=== PATIENT | female | born 1970 | race Caucasian/White ===

== ENCOUNTER → 2018-05-28 | Outpatient (CLI) | payer BC ==
[2018-05-28 10:14] VITALS: BP 143/89; PULSE 71; RESP 18; TEMP 97.4; BMI 24.1
--- NOTE | 2018-05-28 10:15 | P.HPOB ---
History of Present Illness H&P Date: 05/28/18 Chief Complaint: The patient is here for her routine gynecologic exam and mammogram. This is a 47-year-old with an LMP of 05/20/2018. She is status post endometrial ablation. Her is status post vasectomy. She states her menses irregular every month and are normal. They are typically lasting 5 to 6 days. Her last 2 Pap smears on 03/20/2017 and 03/14/2016 showed ascus with negative high-risk HPV testing. Review of Systems The patient has intentionally lost 7 pounds over the last year. She denies respiratory, cardiac, or G.I. problems. 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 She had an endometrial ablation for hypermenorrhea. 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 - Past Family History Father Family Medical History: Hypertension Medications and Allergies Home Medications Medication Instructions Recorded Confirmed Type No Known Home Medications 05/28/18 05/28/18 History Allergies Allergy/AdvReac Type Severity Reaction Status Date / Time No Known Allergies Allergy Unverified 05/28/18 09:17 Exam Vital Signs Temp Pulse Resp BP Pulse Ox 05/28/18 09:18 97.4 F L 71 18 143/89 98 Intake and Output 05/27/18 05/28/18 05/28/18 22:59 06:59 14:59 Other: Weight 69.853 kg Height 5'7", weight 154 pounds, BMI 24.1. This is a well-developed well-nourished weight female who is alert and oriented times 3 in no acute distress. HEENT: Within normal limits. NECK: Supple without mass or thyromegaly. CHEST AND LUNGS: Clear to auscultation. HEART: Regular rate and rhythm. BREASTS: Are without mass or discharge. AXILLARY EXAM: Negative for adenopathy. BACK: Negative for CVA tenderness. ABDOMEN: Soft, nontender, without palpable masses. PELVIC EXAM: Normal external genitalia. Cervix and vagina appear normal. The cervix is multiparous. There is no unusual discharge. There is no evidence of prolapse. The uterus is midposition, nongravid size and nontender. There are no palpable adnexal masses or tenderness. RECTAL EXAM: negative for mass or tenderness and is negative for occult blood. EXTREMITIES: Nontender. IMPRESSION: 1. 47-year-old female with normal gynecologic exam. 2. Her has status post vasectomy. 3. Previous ascus Pap smear with negative high-risk HPV testing approximately 14 months ago. PLAN: 1. Pap smear was deferred. We will plan repeating the Pap smear with high- risk HPV testing (co-test) in one year. We have discussed the recommendations for testing following ascus Pap smear with negative high-risk HPV testing. 2. Self breast awareness was discussed with the patient. 3. Screening mammogram will be done today. 4. Osteoporosis prevention was discussed. I have stressed the importance of adequate calcium, vitamin D and regular exercise. Recommended amounts of calcium and vitamin D were also discussed. 5. She will return in one year.
--- NOTE | 2018-05-29 09:58 | MM ---
Reason for exam: screening (asymptomatic). Last mammogram was performed 1 year and 2 months ago. History: Patient history of other cancer. Benign right mammotome panel of the right breast, November 04, 2012. Physical Findings: A clinical breast exam by your physician is recommended on an annual basis and results should be correlated with mammographic findings. MG Screening Mammo w CAD Bilateral CC and MLO view(s) were taken. Prior study comparison: March 20, 2017, bilateral MG screening mammo w CAD. March 14, 2016, bilateral MG screening mammo w CAD. The breast tissue is heterogeneously dense. This may lower the sensitivity of mammography. There is chronic nodularity bilaterally. There is no dominant lesion. No significant changes when compared with prior studies. ASSESSMENT: Benign, BI-RAD 2 RECOMMENDATION: Routine screening mammogram of both breasts in 1 year.
== END | disposition home or self-care (01) ==
LOC: WWCWWP 09:05
PROVIDERS: ATTEND Obstetrics & Gynecology
DX: Z12.31 Encounter for screening mammogram for malignant neoplasm of breast (principal)
CPT/HCPCS: 77067

== ENCOUNTER → 2019-06-17 | Outpatient (CLI) | payer BC ==
[2019-06-17 08:03] VITALS: BP 136/92; PULSE 70; RESP 18; TEMP 97.7
--- NOTE | 2019-06-17 08:56 | P.HPOB ---
History of Present Illness H&P Date: 06/17/19 Chief Complaint: The patient is here for her routine gynecologic exam and ma mmogram. This is a 48-year-old 89 with an LMP of 05/27/2019. The patient's is status post vasectomy. She is status post endometrial ablation. Menses are regular every month lasting about 6 days. She states her periods are somewhat bothersome to her. She does not like that they are lasting 6 days even after her ablation. Her last Pap smear showed ASCUS with negative high-risk HPV testing in March 2017. Review of Systems The patient has gained 4 pounds over the last year. She denies respiratory, cardiac, or G.I. problems. : She occasionally has to urinate more frequently. 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 She had an endometrial ablation for hypermenorrhea. History of Any Multi-Drug Resistant Organisms: None Reported Past Surgical History: Section, Uterine Ablation Additional Past Surgical History / Comment(s): Endometrial Ablation 2005. 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 - Past Family History Father Family Medical History: Hypertension Medications and Allergies Home Medications Medication Instructions Recorded Confirmed Type No Known Home Medications 05/28/18 06/17/19 History Allergies Allergy/AdvReac Type Severity Reaction Status Date / Time No Known Allergies Allergy Unverified 06/17/19 07:56 Exam Vital Signs Temp Pulse Resp BP Pulse Ox 06/17/19 07:56 97.7 F 70 18 136/92 100 Intake and Output 06/16/19 06/17/19 06/17/19 22:59 06:59 14:59 Other: Weight 71.668 kg Height 5 feet 7 inches, weight 158 pounds, BMI 24.7. This is a well-developed well-nourished white female who is alert and oriented times 3 in no acute distress. HEENT: Within normal limits. NECK: Supple without mass or thyromegaly. CHEST AND LUNGS: Clear to auscultation. HEART: Regular rate and rhythm. BREASTS: Are without mass or discharge. AXILLARY EXAM: Negative for adenopathy. BACK: Negative for CVA tenderness. ABDOMEN: Soft, nontender, without palpable masses. PELVIC EXAM: Normal external genitalia. Cervix and vagina appear normal. The cervix is multiparous and a grade 2 uterine prolapse is noted. There is no significant cystocele and there is a minimal rectocele. There is no unusual discharge. The uterus is midposition, multiparous nongravid size and nontender. There are no palpable adnexal masses or tenderness. RECTAL EXAM: negative for mass or tenderness and is negative for occult blood. EXTREMITIES: Nontender. IMPRESSION: 1. 48-year-old female whose is status post vasectomy with grade 2 uterine prolapse. 2. Mild hypermenorrhea despite previous endometrial ablation. 3. The patient feels that she does not hold is much urine and thus has to urinate more frequently. 4. Previous ASCUS Pap smear with negative high-risk HPV testing. 5. Elevated blood pressure. PLAN: 1. Pap smear with high-risk HPV testing was performed. 2. Self breast awareness was discussed with the patient. 3. Screening mammogram will be done today. 4. We had a long discussion regarding her mild uterine prolapse, mild hypermenorrhea and smaller bladder capacity. She will try negative Valsalva exercises and instructions were given to the patient on this. She'll also try to void more completely by giving herself more time when she does urinate and by relaxing. 5. Information on pelvic support problems and hysterectomy were given to the patient. She states she is contemplating something more definitive for her symptoms such as hysterectomy. 6. I recommended that the patient check her own blood pressures on a regular basis and follow up with Dr. Beckford for blood pressure elevations. She states she is able to check her blood pressures at work. 7. She was advised to return in one year for her annual well woman exam.
--- NOTE | 2019-06-18 10:59 | MM ---
Reason for exam: screening (asymptomatic). Last mammogram was performed 1 year and 1 month ago. History: Patient history of other cancer. Benign right mammotome panel of the right breast, November 04, 2012. Took hormonal contraceptives for 10 years. Physical Findings: A clinical breast exam by your physician is recommended on an annual basis and results should be correlated with mammographic findings. MG Screening Mammo w CAD Bilateral CC and MLO view(s) were taken. Prior study comparison: May 28, 2018, bilateral MG screening mammo w CAD. March 20, 2017, bilateral MG screening mammo w CAD. The breast tissue is heterogeneously dense. This may lower the sensitivity of mammography. There are increased right lower inner quadrant calcifications at anterior depth. No suspicious abnormality on the left breast. Right biopsy marker noted. ASSESSMENT: Incomplete: need additional imaging evaluation, BI-RAD 0 RECOMMENDATION: Special view mammogram of the right breast. [facility] will attempt to contact patient to return for supplemental views.
== END ==
LOC: WWCWWP 07:46
PROVIDERS: ATTEND Obstetrics & Gynecology
DX: Z12.31 Encounter for screening mammogram for malignant neoplasm of breast (principal)
CPT/HCPCS: 77067

== ENCOUNTER → 2019-06-26 | Outpatient (CLI) | payer BC ==
--- NOTE | 2019-06-26 13:32 | MM ---
Reason for exam: additional evaluation requested from abnormal screening. Last mammogram was performed less than 1 month ago. History: Patient history of other cancer. Benign right mammotome panel of the right breast, November 04, 2012. Took hormonal contraceptives for 10 years. Physical Findings: Nurse did not find any significant physical abnormalities on exam. MG Work Up Mamm w CAD RT CC with magnification, LM with magnification, and LM view(s) were taken of the right breast. Prior study comparison: June 17, 2019, bilateral MG screening mammo w CAD. May 28, 2018, bilateral MG screening mammo w CAD. The breast tissue is heterogeneously dense. This may lower the sensitivity of mammography. There is a right lower inner quadrant 1.8cm heterogenous linear calcifications. Biopsy recommended due to the linear morphology. Other scattered benign appearing right calcifications. Right biopsy marker noted. These results were verbally communicated with the patient and result sheet given to the patient on 06/26/19. ASSESSMENT: Suspicious, BI-RAD 4 RECOMMENDATION: Stereotactic core biopsy of the right breast. Called Dr. Jones's office with mammographic findings and has scheduled an appointment for the patient for 08/07/19 at 8:[address] Stephens. Biopsy scheduled for 07/25/19 at 10:20. PRELIMINARY REPORT CALLED AND FAXED TO DR. STEPHENS ON 06/26/19.
== END | disposition home or self-care (01) ==
LOC: RADMAMWWP 10:15
PROVIDERS: ATTEND Obstetrics & Gynecology
DX: R92.8 Other abnormal and inconclusive findings on diagnostic imaging of breast (principal)
CPT/HCPCS: 77065

== ENCOUNTER → 2019-08-19 | Outpatient (CLI) | payer BC ==
[2019-08-19 08:54] VITALS: BP 146/87; PULSE 64; RESP 18; TEMP 98.1
--- NOTE | 2019-08-19 09:22 | P.GSHP ---
History of Present Illness H&P Date: 08/19/19 Chief Complaint: Abnormal right breast mammogram Geovanna is a 48-year-old white female who underwent routine screening mammogram performed in June 2019 was noted to have some right breast microcalcifications of concern. These were 1.8 cm heterogeneous and linear in the right lower inner quadrant. The patient gets mammograms regularly. She does not feel anything of concern in her breast. No pain in her breast.She has had a previous right breast mammogram which was benign. This mammogram was sent stereotactically several years ago. Family History: none Hormonal History: menarche: 14 , first born at 23, breast fed: yes menopause: periods regular, last period August 15 BCP: 2 years hormones: none Surgical History: 1. 2. Uterine ablation Medical history: Negative Social history: Smoke: Negative Alcohol: A glass of wine weekly Drugs: Negative - Constitutional Constitutional: Denies chills, Denies fever - EENT Eyes: denies blurred vision, denies pain Ears: deny: decreased hearing, tinnitus Ears, nose, mouth and throat: Denies headache, Denies sore throat - Breasts Breasts: bilateral: as per HPI - Cardiovascular Cardiovascular: Denies chest pain, Denies shortness of breath - Respiratory Respiratory: Denies cough, Denies 7 - Gastrointestinal Gastrointestinal: Denies abdominal pain, Denies diarrhea, Denies nausea, Denies vomiting - Genitourinary (Female) Genitourinary: Denies dysuria, Denies hematuria - Menstruation Menstruation: Reports period normal - Musculoskeletal Musculoskeletal: Denies myalgias - Integumentary Integumentary: Denies pruritus, Denies rash - Neurological Neurological: Denies numbness, Denies weakness - Psychiatric Psychiatric: Denies anxiety, Denies depression - Endocrine Endocrine: Denies fatigue, Denies weight change - Hematologic/Lymphatic Comment: none - Allergic/Immunologic Comment: none Past Medical History Past Medical History: No Reported History Additional Past Medical History / Comment(s): 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 She had an endometrial ablation for hypermenorrhea. History of Any Multi-Drug Resistant Organisms: None Reported Past Surgical History: Section, Uterine Ablation Additional Past Surgical History / Comment(s): Endometrial Ablation 2005. Past Psychological History: No Psychological Hx Reported Smoking Status: Light tobacco smoker Past Alcohol Use History: Occasional Past Drug Use History: None Reported - Past Family History Father Family Medical History: Hypertension Medications and Allergies Home Medications Medication Instructions Recorded Confirmed Type Ascorbic Acid [Vitamin C] 500 mg PO DAILY 08/19/19 08/19/19 History Cholecalciferol [Vitamin D3 (25 1,000 unit PO DAILY 08/19/19 08/19/19 History Mcg = 1000 Iu)] Zinc 50 mg PO DAILY 08/19/19 08/19/19 History Allergies Allergy/AdvReac Type Severity Reaction Status Date / Time No Known Allergies Allergy Unverified 08/19/19 08:55 Surgical - Exam Vital Signs Temp Pulse Resp BP Pulse Ox 98.1 F 64 18 146/87 97 08/19/19 08:47 08/19/19 08:47 08/19/19 08:47 08/19/19 08:47 08/19/19 08:47 BMI 24.6 - General well developed, well nourished, no distress - Eyes normal ocular movement - ENT no hearing loss, no congestion - Neck no masses, trachea midline - Respiratory normal expansion, normal respiratory effort, clear to auscultation - Cardiovascular Rhythm: regular - Abdomen Abdomen: soft, non tender, no guarding, no rigid, no rebound - Integumentary no rash, no abnormal pigmentation - Neurologic no disoriented, no combative - Musculoskeletal normal gait - Psychiatric oriented to time, oriented to person, oriented to place, speech is normal, memory intact breast exam: Bra size 34DD Appearance: no nipple changes, Ptosis grade 2 palpation: Right breast: Multi-positional exam fibrocystic changes, no dominant masses or nodules of concern Right axilla: No adenopathy of concern Left breast: Multi-positional exam fibrocystic changes no dominant masses or nodules of concern Left axilla: No adenopathy of concern Results Mammogram results reviewed Assessment and Plan Assessment: Impression: 1. Mammographic abnormality right breast heterogeneous linear calcifications 2. Fibrocystic breast changes Plan: 1. Right breast stereotactic core biopsy 2. Covid testing as per hospital policy prior to biopsy I've had a discussion with the patient regarding the risks and benefits of the procedure. She understands and wishes to proceed. Risks include but are not limited to bleeding, infection, or reaction to the anesthetic. Additionally she understands if this were to show atypia or malignancy that further surgical treatment may be necessary. Prior to the procedure we have talked about testing further coronavirus and this will be done as per hospital policy. CC: DR. Griggs Time 25 minutes greater than 50% of time in planning and counselling Time with Patient: Less than 30
== END | disposition home or self-care (01) ==
LOC: WWCWWP 08:39
PROVIDERS: ATTEND Surgery
DX: Z53.9 Procedure and treatment not carried out, unspecified reason (principal)

== ENCOUNTER → 2019-08-27 | Outpatient (CLI) | payer BC | END | disposition home or self-care (01) | LOC: LABWHC1 10:35 | PROVIDERS: ATTEND Surgery | DX: U07.1 COVID-19 (principal) | CPT/HCPCS: 87635 ==

== ENCOUNTER → 2019-08-29 | Day surgery (SDC) | payer BC ==
[2019-08-29 07:23] VITALS: RESP 16
--- NOTE | 2019-08-29 08:28 | P.PCN ---
Date of Procedure: 08/29/19 Preoperative Diagnosis: Mammographic abnormality right breast/microcalcifications of concern Postoperative Diagnosis: Same Procedure(s) Performed: Stereotactic core biopsy right breast Anesthesia: local Surgeon: Kaylin Lizarraga Estimated Blood Loss (ml): 0 Pathology: other (Breast tissue) Condition: stable Disposition: same day Indications for Procedure: Microcalcifications of concern right breast lower inner quadrant Operative Findings: Microcalcifications noted in biopsy specimen Description of Procedure: The patient is a 48-year-old white female who had a mammogram performed which revealed right lower inner quadrant 1.8 cm heterogeneous linear calcifications. Biopsy was recommended. Alternatives to stereotactic biopsy for considered and patient wished to proceed with stereotactic core biopsy. The patient was brought to the stereotactic core biopsy room. She was positioned on the biopsy table in a prone position. A market news reporter film was obtained and the area of concern was identified. A CC from below approach was utilized. The lesion was targeted. The breast was prepped using Betadine. 20 mL of 1% lidocaine 10 of which had epinephrine were used to anesthetize the area of concern. A 9-gauge vacuum-assisted core rotating biopsy needle was driven to the correct coordinates. The needle was fired and post-fire films were obtained showing that the needle was in the correct location. 12 specimens were obtained. Radiograph of the specimen revealed that the area of concern had been sampled microcalcifications were present in the specimen. A secure bianka Top-Hat clip was placed. Radiograph revealed the clip was in the correct location. The patient tolerated the procedure in stable condition. She will follow-up Dr. Gusman next week. The specimen was sent to pathology.
[2019-08-29 08:33] VITALS: BP 150/89; PULSE 72; TEMP 98
--- NOTE | 2019-08-29 09:09 | MM ---
EXAMINATION TYPE: MG stereo VAD BX RT DATE OF EXAM: 08/29/2019 COMPARISON: Prior mammogram June 26, 2019 and older mammograms CLINICAL HISTORY: Abnormal mammogram, right breast calcifications TECHNIQUE: Stereotactic guided core biopsy of right breast with clip placement and follow-up diagnostic two-view mammogram. FINDINGS: The procedure of stereotactic guided core biopsy was explained to the patient. Benefits, alternatives, and risks were discussed. An informed consent was then obtained. [facility] was chosen. Shortness pathway was inferior approach. I performed the localization, then surgeon, Dr. Naseem Colon performed the remainder of the procedure. A vacuum assisted biopsy gun was used to obtain multiple core samples. The patient tolerated the procedure well without any immediate complication. The patient was kept in the radiology department for short stay after the procedure and then discharged home in stable condition. Targeted calcifications are identified in specimen mammogram. Post biopsy mammogram shows the clip to appear in satisfactory position relative to the targeted area of concern on the preprocedure images with some residual calcifications at this level noted. IMPRESSION: SUCCESSFUL, UNCOMPLICATED STEREOTACTIC GUIDED CORE BIOPSY OF AREA OF CONCERN IN THE RIGHT BREAST, FULL PATHOLOGY RESULTS TO FOLLOW. Low to intermediate index of suspicion noted at time of procedure. Pathology Results: Benign RIGHT BREAST, NEEDLE CORE BIOPSIES: Fibrocystic spectrum changes including apocrine metaplasia. Coarse intraductal mineralizations are identified. Recommendation Follow up mammogram of the right breast in 6 months. MTDD
== END ==
LOC: RADMAMWWP 06:50
PROVIDERS: ATTEND Surgery
DX: N60.81 Other benign mammary dysplasias of right breast (principal); R92.1 Mammographic calcification found on diagnostic imaging of breast; R92.8 Other abnormal and inconclusive findings on diagnostic imaging of breast
CPT/HCPCS: 88305; 19081; A4648; J2001

== ENCOUNTER → 2019-09-04 | Outpatient (CLI) | payer BC ==
[2019-09-04 09:07] VITALS: BP 177/98; PULSE 65; RESP 18; TEMP 98.3
--- NOTE | 2019-09-04 09:26 | P.PN ---
Subjective Progress Note Date: 09/04/19 Principal diagnosis: Fibrocystic breast changes on stereo biopsy Geovanna is a 48-year-old white female status post stereotactic core biopsy of the right breast on 08/29/19. Pathology results were benign including coarse intraductal localization. The patient had some mild ecchymosis at the site otherwise no complaints. Objective - Vital Signs Vital signs: Vital Signs Temp 98.3 F 09/04/19 09:00 Pulse 65 09/04/19 09:00 Resp 18 09/04/19 09:00 BP 177/98 09/04/19 09:00 Pulse Ox 100 09/04/19 09:00 Intake & Output 09/03/19 09/04/19 09/04/19 18:59 06:59 18:59 Weight 71.214 kg - Exam BMI 24.6 - Constitutional General appearance: Present: average body habitus - EENT Eyes: Present: EOMI ENT: Present: hearing grossly normal - Neck Neck: Present: normal ROM - Respiratory Respiratory: bilateral: CTA - Cardiovascular Rhythm: regular Heart sounds: normal: S1, S2 - Integumentary Integumentary Comment(s): Biopsies site clean and dry with mild ecchymosis no evidence of infection No enlarged hematoma Integumentary: Present: normal turgor - Psychiatric Psychiatric: Present: A&O x's 3, appropriate affect, intact judgment & insight Assessment and Plan Assessment: Impression: 1. Patient status post right breast stereotactic core biopsy/concordant benign findings Plan: 1. Repeat right breast mammogram in 6 months with physician exam at that time CC: Dr. Griggs Encounter 8 minutes, greater than 50% of time in planning and counseling
== END | disposition home or self-care (01) ==
LOC: WWCWWP 08:54
PROVIDERS: ATTEND Surgery
DX: Z53.9 Procedure and treatment not carried out, unspecified reason (principal)

== ENCOUNTER → 2020-03-19 | Outpatient (CLI) | payer BC ==
--- NOTE | 2020-03-22 08:16 | MM ---
Reason for exam: follow-up at short interval from prior study. Last mammogram was performed 9 months ago. History: Patient history of other cancer. Benign MG stereo VAD BX RT of the right breast, August 29, 2019. Benign right mammotome panel of the right breast, November 04, 2012. Took hormonal contraceptives for 10 years. Physical Findings: Nurse did not find any significant physical abnormalities on exam. MG Diagnostic Mammo RT w CAD CC and MLO view(s) were taken of the right breast. Prior study comparison: June 26, 2019, right breast MG work up mamm w CAD RT. June 17, 2019, bilateral MG screening mammo w CAD. The breast tissue is heterogeneously dense. This may lower the sensitivity of mammography. Finding: There are typically benign round, diffuse/scattered and regional calcifications in the right breast. Previous mammotome biopsy in the right breast x 2. There is no discrete abnormality. These results were verbally communicated with the patient and result sheet given to the patient on 03/19/20. ASSESSMENT: Benign, BI-RAD 2 RECOMMENDATION: Return to routine screening mammogram schedule for both breasts. Back on schedule for June 2020.
== END | disposition home or self-care (01) ==
LOC: RADMAMWWP 14:47
PROVIDERS: ATTEND Surgery
DX: R92.8 Other abnormal and inconclusive findings on diagnostic imaging of breast (principal)
CPT/HCPCS: 77065

== ENCOUNTER → 2020-09-21 | Outpatient (CLI) | payer BC ==
[2020-09-21 08:07] VITALS: BP 163/111; PULSE 63; RESP 18; TEMP 97.9
--- NOTE | 2020-09-21 09:00 | P.HPOB ---
History of Present Illness H&P Date: 09/21/20 Chief Complaint: The patient is here for her routine gynecologic exam and ma mmogram. This is a 49-year-old with an LMP of 09/06/2020. The patient's is status post vasectomy. The patient states her menstrual periods are regular every month and are fairly normal in flow. She is status post endometrial ablation. The patient states she has noticed right hip pain about 2 days before each menstrual period during the past 2 months. She is otherwise without gynecologic complaints. Review of Systems The patient has gained 13 pounds over the last year. She denies respiratory, cardiac, or G.I. problems. Past Medical History Past Medical History: No Reported History Additional Past Medical History / Comment(s): Osteoporosis diagnosed by her foamite mixer. 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 She had an endometrial ablation for hypermenorrhea. History of Any Multi-Drug Resistant Organisms: None Reported Past Surgical History: Section, Uterine Ablation Additional Past Surgical History / Comment(s): Endometrial Ablation 2005. R emoval of parathyroid gland in 2020. 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 - Past Family History Father Family Medical History: Hypertension Medications and Allergies Home Medications Medication Instructions Recorded Confirmed Type Ascorbic Acid [Vitamin C] 500 mg PO DAILY 08/19/19 09/21/20 History Cholecalciferol [Vitamin D3 (25 10,000 unit PO DAILY 08/19/19 09/21/20 History Mcg = 1000 Iu)] Zinc 50 mg PO DAILY 08/19/19 09/21/20 History Calcium Carbonate [Calcium] 600 mg PO DAILY 09/21/20 09/21/20 History Allergies Allergy/AdvReac Type Severity Reaction Status Date / Time No Known Allergies Allergy Unverified 09/21/20 08:03 Exam Vital Signs Temp Pulse Resp BP Pulse Ox 09/21/20 08:03 97.9 F 63 18 163/111 100 Intake and Output 09/20/20 09/21/20 09/21/20 22:59 06:59 14:59 Other: Weight 77.564 kg Height 5 feet 7 inches, weight 171 pounds, BMI 26.8. This is a well-developed well-nourished white female who is alert and oriented times 3 in no acute distress. HEENT: Within normal limits. NECK: Supple without mass or thyromegaly. CHEST AND LUNGS: Clear to auscultation. HEART: Regular rate and rhythm. BREASTS: Are without mass or discharge. AXILLARY EXAM: Negative for adenopathy. BACK: Negative for CVA tenderness. ABDOMEN: Soft, nontender, without palpable masses. PELVIC EXAM: Normal external genitalia. Cervix and vagina appear normal. The cervix is multiparous. There is no unusual discharge. There is no evidence of prolapse. No significant uterine prolapse is noted at this time. The uterus is midposition, nongravid size and nontender. There are no palpable adnexal masses, but the patient states it is slightly tender on the right side upon bimanual examination. RECTAL EXAM: Rectovaginal exam is negative for mass or tenderness and is negative for occult blood. EXTREMITIES: Nontender. IMPRESSION: 1. 49-year-old perimenopausal female whose is status post vasectomy with 2 month history of right hip pain around the onset of her menstrual period with slight right adnexal tenderness on exam today. 2. Elevated blood pressure 3. History of osteoporosis per the patient. This was recently diagnosed by bone density testing done through her foamite mixer who treated her for parathyroid problems. PLAN: 1. Pap smear was deferred since she had a negative Pap smear cotest last year. We will plan on repeating this in approximately 1-2 years because of her prior ASCUS Pap smear. 2. Self breast awareness was discussed with the patient. 3. Screening mammogram will be done today. 4. We have discussed her elevated blood pressure. I have recommended that she check her own blood pressures on a regular basis and follow-up with her PCP regarding blood pressure elevations. 5. Weight control was discussed since she has gained weight since her last visit. I have stressed the importance of good nutrition, regular meals, adequate fiber and regular exercise. 6. Pelvic ultrasound was recommended and the order slip was given to the patient for this. 7.Osteoporosis management was discussed. I have stressed the importance of adequate calcium, vitamin D and regular exercise. Recommended amounts of calcium and vitamin D were also discussed. She was already offered medication for osteoporosis by her foamite mixer which she had declined. We have discussed reasons why I would like her to consider starting medications. We will also discussed pros and cons with various medications for osteoporosis. She will consider this and follow up with her foamite mixer for osteoporosis management. She states they are planning to redo the bone density testing in the upcoming year. 8. She was advised to return in one year for her annual well woman exam.
--- NOTE | 2020-09-22 12:17 | MM ---
Reason for exam: screening (asymptomatic). Last mammogram was performed 6 months ago. History: Patient history of other cancer. Benign MG stereo VAD BX RT of the right breast, August 29, 2019. Benign right mammotome panel of the right breast, November 04, 2012. Took hormonal contraceptives for 10 years. Physical Findings: A clinical breast exam by your physician is recommended on an annual basis and results should be correlated with mammographic findings. MG 3D Screening Mammo W/Cad Bilateral CC and MLO view(s) were taken. Prior study comparison: March 19, 2020, right breast MG diagnostic mammo RT w CAD. June 17, 2019, bilateral MG screening mammo w CAD. May 28, 2018, bilateral MG screening mammo w CAD. The breast tissue is heterogeneously dense. This may lower the sensitivity of mammography. There are benign appearing round calcifications bilaterally. Previous mammotome biopsy in the right breast x 2. Group of indistinct calcifications left breast middle central depth. This finding is changed when compared with previous exams. ASSESSMENT: Incomplete: need additional imaging evaluation, BI-RAD 0 RECOMMENDATION: Special view mammogram of the left breast. [facility] will attempt to contact patient to return for supplemental views.
== END ==
LOC: WWCWWP 07:48
PROVIDERS: ATTEND Obstetrics & Gynecology
DX: Z01.419 Encounter for gynecological examination (general) (routine) without abnormal findings (principal); R10.2 Pelvic and perineal pain; I10 Essential (primary) hypertension; M81.0 Age-related osteoporosis without current pathological fracture; F17.210 Nicotine dependence, cigarettes, uncomplicated; Z12.31 Encounter for screening mammogram for malignant neoplasm of breast
CPT/HCPCS: 77063; 77067

== ENCOUNTER → 2020-09-29 | Outpatient (CLI) | payer BC ==
--- NOTE | 2020-09-30 14:23 | MM ---
Reason for exam: additional evaluation requested from abnormal screening. Last mammogram was performed less than 1 month ago. History: Patient history of other cancer. Benign MG stereo VAD BX RT of the right breast, August 29, 2019. Benign right mammotome panel of the right breast, November 04, 2012. Took hormonal contraceptives for 10 years. Physical Findings: Nurse did not find any significant physical abnormalities on exam. MG 3D Work Up W/Cad LT CC with magnification, LM with magnification, and LM view(s) were taken of the left breast. Prior study comparison: September 21, 2020, bilateral MG 3d screening mammo w/cad. March 19, 2020, right breast MG diagnostic mammo RT w CAD. The breast tissue is heterogeneously dense. This may lower the sensitivity of mammography. There is a grouping of heterogeneous calcifications left breast middle depth, layering in a true lateral view, likely unchanged on priors when accounting for differences in technique. These results were verbally communicated with the patient and result sheet given to the patient on 09/29/20. ASSESSMENT: Probably benign, BI-RAD 3 RECOMMENDATION: Follow-up diagnostic mammogram of the left breast in 6 months. TERA
== END | disposition home or self-care (01) ==
LOC: RADMAMWWP 10:26
PROVIDERS: ATTEND Obstetrics & Gynecology
DX: R92.1 Mammographic calcification found on diagnostic imaging of breast (principal)
CPT/HCPCS: 77061; 77065

== ENCOUNTER → 2020-10-15 | Outpatient (CLI) | payer BC ==
--- NOTE | 2020-10-15 14:12 | US ---
EXAMINATION TYPE: US pelvis complete transvag DATE OF EXAM: 10/15/2020 COMPARISON: NONE CLINICAL HISTORY: R68.89 ABN PELVIC EXAM, N94.6 DYSMENORRHEA. Pain TECHNIQUE: Transvaginal (TV) and Transabdominal (TA) . Transabdominal sonographic images of the pel vis were acquired. Transvaginal sonographic images were medically necessary to assess the following anatomy: EXAM MEASUREMENTS: Uterus: 8.6 x 4.6 x 5.3 cm Endometrial Stripe: .7 cm Right Ovary: 1.9 x 1.6 x 1.8 cm Left Ovary: 2.0 x 2.7 x 2.6 cm 1. Uterus: Anteverted calcifications seen in the cervix. 2. Endometrium: wnl 3. Right Ovary: wnl 4. Left Ovary: Two cysts within the left ovary measuring up to 1.4 cm. 5. Bilateral Adnexa: wnl 6. Posterior cul-de-sac: wnl IMPRESSION: 1. Heterogeneous uterus. Endometrial stripe measures within normal limits for a menstruating female a t 7 mm. 2. 1.4 cm left ovarian cyst. 3. No free fluid.
--- NOTE | 2020-10-19 10:34 | P.PN ---
Progress Note - Text Progress Note Date: 10/19/20 OUTPATIENT FOLLOW-UP NOTE TEST(S)/RESULTS: Pelvic ultrasound done on 10/15/2020 showed a benign appearing 1.4 cm left ovarian cyst and a heterogeneous uterus of normal size. METHOD OF NOTIFICATION: The patient was notified by phone. PATIENT COMMENTS: DIAGNOSIS: Intermittent right pelvic pain and associated with the menstrual period with no significant findings on pelvic ultrasound to explain the pains. DISCUSSION: I have recommended that she try to see if there are any factors that are associated with the pains and she will also call if pains are becoming a problem or becoming worse. PLAN: She was advised to return in one year for her annual well woman exam and as needed.
== END | disposition home or self-care (01) ==
LOC: RADUSWWP 09:07
PROVIDERS: ATTEND Obstetrics & Gynecology
DX: N83.202 Unspecified ovarian cyst, left side (principal)
CPT/HCPCS: 76830; 76856

== ENCOUNTER → 2021-04-01 | Outpatient (CLI) | payer BC ==
--- NOTE | 2021-04-01 10:55 | MM ---
Reason for exam: follow-up at short interval from prior study. Last mammogram was performed 6 months ago. History: Patient history of other cancer. Benign MG stereo VAD BX RT of the right breast, August 29, 2019. Benign right mammotome panel of the right breast, November 04, 2012. Took hormonal contraceptives for 10 years. Physical Findings: Nurse did not find any significant physical abnormalities on exam. MG 3D Diag Mammo W/Cad LT CC and MLO view(s) were taken of the left breast. Prior study comparison: September 29, 2020, left breast MG 3d work up w/cad LT. September 21, 2020, bilateral MG 3d screening mammo w/cad. The breast tissue is heterogeneously dense. This may lower the sensitivity of mammography. Finding: There are typically benign diffuse/scattered and grouped calcifications in the left breast at several levels redemonstrated. There is no discrete abnormality. These results were verbally communicated with the patient and result sheet given to the patient on 04/01/21. ASSESSMENT: Benign, BI-RAD 2 RECOMMENDATION: Return to routine screening mammogram schedule for both breasts. Back on schedule for September 2021.
== END | disposition home or self-care (01) ==
LOC: RADMAMWWP 10:15
PROVIDERS: ATTEND Obstetrics & Gynecology
DX: R92.1 Mammographic calcification found on diagnostic imaging of breast (principal); Z85.89 Personal history of malignant neoplasm of other organs and systems
CPT/HCPCS: 77061; 77065

== ENCOUNTER → 2021-11-22 | Outpatient (CLI) | payer BC ==
[2021-11-22 08:00] VITALS: BP 142/94; PULSE 70; RESP 17; TEMP 98.6
--- NOTE | 2021-11-22 08:41 | P.HPOB ---
History of Present Illness H&P Date: 11/22/21 Chief Complaint: The patient is here for her routine gynecologic exam and ma mmogram. This is a 51-year-old 104 with an LMP of 11/07/2021. The patient's is status post vasectomy. She is status post endometrial ablation. She continues to have menstrual periods. She has had a small amount of spotting in between her menstrual periods during the past 2 months. She is otherwise without complaints. Review of Systems She has lost about 15 pounds over the past year. She denies respiratory or cardiac problems. GI: Occasional gastric reflux. 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 She had an endometrial ablation for hypermenorrhea. History of Any Multi-Drug Resistant Organisms: None Reported Past Surgical History: Section, Uterine Ablation Additional Past Surgical History / Comment(s): Endometrial Ablation 2005. Removal of parathyroid gland in 2020. Past Psychological History: No Psychological Hx Reported Smoking Status: Former smoker Past Alcohol Use History: Occasional (4-5 per week) Additional Past Alcohol Use History / Comment(s): She quit smoking in early 2021 and previously only smoked socially. Past Drug Use History: None Reported Additional History: She has been since 1994. 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 - Past Family History Father Family Medical History: Hypertension Medications and Allergies Home Medications Medication Instructions Recorded Confirmed Type Cholecalciferol [Vitamin D3 (25 10,000 unit PO DAILY 08/19/19 11/22/21 History Mcg = 1000 Iu)] Calcium Carbonate [Calcium] 600 mg PO DAILY 09/21/20 11/22/21 History Pantoprazole Sodium [Protonix] 40 mg PO DAILY 11/22/21 11/22/21 History Allergies Allergy/AdvReac Type Severity Reaction Status Date / Time No Known Allergies Allergy Unverified 11/22/21 07:55 Exam Vital Signs Temp Pulse Resp BP Pulse Ox 11/22/21 07:57 98.6 F 70 17 142/94 100 Intake and Output 11/21/21 11/22/21 11/22/21 22:59 06:59 14:59 Other: Weight 70.76 kg Height 5 feet 7 inches, weight 156 pounds, BMI 24.4. This is a well-developed well-nourished white female who is alert and oriented times 3 in no acute distress. HEENT: Within normal limits. NECK: Supple without mass or thyromegaly. CHEST AND LUNGS: Clear to auscultation. HEART: Regular rate and rhythm. BREASTS: Are without mass or discharge. AXILLARY EXAM: Negative for adenopathy. BACK: Negative for CVA tenderness. ABDOMEN: Soft, nontender, without palpable masses. PELVIC EXAM: Normal external genitalia. Cervix and vagina appear normal. There is no unusual discharge. There is a grade 2 rectocele noted with a grade 2 uterine prolapse. There is no significant cystocele. The uterus is midposition, nongravid size and nontender. There are no palpable adnexal masses or tenderness. RECTAL EXAM: Rectovaginal exam is negative for mass or tenderness and is negative for occult blood. Rectal exam also confirms a small rectocele. EXTREMITIES: Nontender. IMPRESSION: 1. 51-year-old pre-menopausal female whose is status post vasectomy. with a symptomatic grade 2 rectocele and grade 2 uterine prolapse. 2. Previous ASCUS Pap smear with negative high-risk HPV testing in 2017 with normal Pap smear cotest on 07/14/2019. 3. Recent intermenstrual spotting with no significant physical findings on exam today. 4. Focal osteoporosis and is currently receiving Reclast yearly through her account service associate. PLAN: 1. Pap smear cotest was performed. If this is negative, we will resume normal cervical screening. 2. Self breast awareness was discussed with the patient. We have also discussed symptoms associated with inflammatory breast cancer. 3. Screening mammogram will be done today. 4. The patient will keep a menstrual calendar and call if recurrent menstrual irregularity or problems. 5. I have recommended she that she look into a screening colonoscopy. She will discuss this with her PCP. 6.Osteoporosis management was discussed. I have stressed the importance of adequate calcium, vitamin D and regular exercise. Recommended amounts of calcium and vitamin D were also discussed. She will continue to do her treatment and bone density testing through her account service associate. 7. She has completed her Covid vaccination series. 8. We have again discussed her pelvic prolapse. She will avoid holding stool longer than necessary and avoid heavy repetitive lifting. She will call if she is experiencing problems. 9. She was advised to return in one year for her annual well woman exam.
--- NOTE | 2021-11-23 15:10 | MM ---
Reason for Exam: Screening (asymptomatic). Last mammogram was performed 1 year(s) and 2 month(s) ago. Patient History: Menarche at age 14. First Full-Term at age 23. Other cancer. Patient used Hormonal Contraceptives for 10 years. 08/29/2019, Benign Core Biopsy on the right side. 11/04/2012, Benign Core Biopsy on the right side. Risk Values: Ml 5 year model risk: 1.3%. NCI Lifetime model risk: 11.8%. Prior Study Comparison: 03/05/2015 Bilateral Screening Mammogram, [facility]. 03/20/2017 Bilateral Screening Mammogram, [facility]. 06/17/2019 Bilateral Screening Mammogram, [facility]. 06/26/2019 Right Diagnostic Mammogram, [facility]. 03/19/2020 Right Diagnostic Mammogram, [facility]. 09/21/2020 Bilateral Screening Mammogram, [facility]. 09/29/2020 Left Diagnostic Mammogram, [facility]. 04/01/2021 Left Diagnostic Mammogram, [facility]. Tissue Density: The breast tissue is heterogeneously dense. This may lower the sensitivity of mammography. Findings: Analyzed By CAD. Benign spherical calcifications within the right breast. There are scattered punctate calcifications bilaterally. Core markers are within the right breast. There are increasing punctate calcifications within the left breast. Additional workup with negative dictation views is recommended. Overall Assessment: Incomplete: need additional imaging evaluation, BI-RAD 0 Management: Diagnostic Mammogram of the left breast. A negative mammogram report should not preclude additional follow up of suspicious palpable abnormalities. Patient should continue monthly self breast exam. A clinical breast exam by your physician is recommended on an annual basis and results should be correlated with mammographic findings. Electronically signed and approved by: Mauro Grier D.O. Radiologis
== END ==
LOC: WWCWWP 07:50
PROVIDERS: ATTEND Obstetrics & Gynecology
DX: Z12.31 Encounter for screening mammogram for malignant neoplasm of breast (principal); Z01.419 Encounter for gynecological examination (general) (routine) without abnormal findings; Z87.39 Personal history of other diseases of the musculoskeletal system and connective tissue; Z87.891 Personal history of nicotine dependence; Z78.0 Asymptomatic menopausal state; N81.4 Uterovaginal prolapse, unspecified; N92.3 Ovulation bleeding; M81.0 Age-related osteoporosis without current pathological fracture
CPT/HCPCS: 77063; 77067

== ENCOUNTER → 2021-12-01 | Outpatient (CLI) | payer BC ==
--- NOTE | 2021-12-01 10:36 | MM ---
Reason for Exam: Additional evaluation requested from abnormal screening. Last screening mammogram was performed less than 1 month ago. Patient History: Menarche at age 14. First Full-Term at age 23. Patient has history of breast feeding. Other cancer. Patient used Hormonal Contraceptives for 10 years. 08/29/2019, Benign Core Biopsy on the right side. 11/04/2012, Benign Core Biopsy on the right side. Risk Values: Ml 5 year model risk: 1.3%. NCI Lifetime model risk: 11.8%. Prior Study Comparison: 06/26/2019 Right Diagnostic Mammogram, [facility]. 03/19/2020 Right Diagnostic Mammogram, [facility]. 09/21/2020 Bilateral Screening Mammogram, [facility]. 09/29/2020 Left Diagnostic Mammogram, [facility]. 04/01/2021 Left Diagnostic Mammogram, [facility]. 11/22/2021 Bilateral MG 3D screening mammo w/cad, [facility]. Tissue Density: Left: The breast tissue is heterogeneously dense. This may lower the sensitivity of mammography. Findings: Analyzed By CAD. There is an increasing group of indeterminate microcalcifications upper outer left breast. Tissue diagnosis is recommended. Overall Assessment: Suspicious, BI-RAD 4 Management: Stereotactic Core Biopsy of the left breast. A clinical breast exam by your physician is recommended on an annual basis and results should be correlated with mammographic findings. This exam should not preclude additional follow-up of suspicious palpable abnormalities. Results were given to the patient verbally at the time of exam. Electronically signed and approved by: Teja Kwon M.D. Radiologis
== END | disposition home or self-care (01) ==
LOC: RADMAMWWP 08:54
PROVIDERS: ATTEND Obstetrics & Gynecology
DX: R92.8 Other abnormal and inconclusive findings on diagnostic imaging of breast (principal); Z85.89 Personal history of malignant neoplasm of other organs and systems
CPT/HCPCS: 77061; 77065

== ENCOUNTER 2022-01-05 08:00 | Day surgery (SDC) | payer BC ==
[2022-01-05 07:35] VITALS: RESP 16
[2022-01-05 08:43] VITALS: BP 160/88; PULSE 71; TEMP 98.1
--- NOTE | 2022-01-09 10:54 | MM ---
Date of Procedure: 01/05/22 Preoperative Diagnosis: Microcalcifications of concern left breast upper outer area Postoperative Diagnosis: Same, reviewed with Dr. Hilliard Procedure(s) Performed: Left breast stereotactic core biopsy Anesthesia: local Surgeon: Kaylin Lizarraga Pathology: other (Breast tissue with microcalcifications of concern noted on radiograph) Condition: stable Disposition: same day Indications for Procedure: Upper calcifications of concern left breast upper outer quadrant area Operative Findings: Microcalcifications of concern noted in specimen radiograph Description of Procedure: The patient is a 51-year-old white female who was noted to have microcalcifications of concern in the left breast on a mammogram performed on . The area had been followed and the number of calcifications in the upper outer quadrant area increased and core biopsy was recommended. The patient was seen and examined and no dominant lumps masses or nodules of concern were noted. Risk and benefits of the procedure were discussed with the patient. Risks include but are not limited to bleeding, infection, reaction to the anesthetic. Alternatives such as watchful waiting resection in the operating room were discussed but not recommended. The patient wished to proceed with stereotactic core biopsy. The patient was brought to the stereotactic core biopsy room. She was positioned prone on the lo-rad table. A CC from above approach was utilized. The area of concern was identified. The area was targeted. The breast was prepped using Betadine. 28 mL of 1% lidocaine were used to anesthetize the area of concern. A 9-gauge vacuum-assisted core rotating biopsy needle was driven to the correct coordinates. A prefire film was obtained. The needle was noted to be in the correct location. The needle was fired. A postoperative film was obtained and the needle was noted to be in the correct location. 15 core biopsy specimens were obtained. Radiograph of the specimen revealed the microcalcifications of concern had been adequately sampled. A secure bianka Top- Hat clip was placed. This was noted to be in the correct location. The patient tolerated the procedure in stable condition. Specimen was sent to pathology. The patient will follow up with Dr. Gusman next week. TERA
== END 2022-01-05 10:00 | disposition home or self-care (01) ==
LOC: RADMAMWWP 08:00
PROVIDERS: ATTEND Surgery
DX: N62 Hypertrophy of breast (principal); N60.82 Other benign mammary dysplasias of left breast; R92.8 Other abnormal and inconclusive findings on diagnostic imaging of breast
CPT/HCPCS: 88305; J2001

== ENCOUNTER → 2022-01-05 | Outpatient (CLI) | payer BC ==
--- NOTE | 2022-01-05 08:07 | P.GSHP ---
History of Present Illness H&P Date: 01/05/22 Chief Complaint: Microcalcifications of concern on mammogram of left breast Geovanna is a 51-year-old white female who had a bilateral mammogram performed on 8921. This revealed some calcifications of concern in the left breast and additional workup was recommended. [place] [address]. Again an increasing group of indeterminate microcalcifications in the upper-outer quadrant of the left breast were identified. Stereotactic core biopsy was recommended. The patient does not feel any lumps masses or nodules of concern in either breast. She is not complaining of any recent trauma or infection in her breast. She has had 2 core biopsies of her right breast in the past which have been benign. These were done by stereotactic core biopsy. Caffeine: 2 cups/day nicotine: none BCP: 10 years stopped at 28 chocolate: occasional Family history: father: thyroid cancer Hormonal History: menarche: 14 , age at first : 23, breast fed: yes periods regular; LMP: 2 weeks ago Surgical history: ablation parathyroid gland removed Medical History: acid reflux Social History: nicotine: none alcochol: wine twice a week drugs: none - Constitutional Constitutional: Denies chills, Denies fever - EENT Eyes: denies blurred vision, denies pain Ears: deny: decreased hearing, tinnitus Ears, nose, mouth and throat: Denies headache, Denies sore throat - Breasts Breasts: bilateral: as per HPI - Cardiovascular Cardiovascular: Denies chest pain, Denies shortness of breath - Respiratory Respiratory: Denies cough, Denies 7 - Gastrointestinal Comment: reflux Gastrointestinal: Denies abdominal pain, Denies diarrhea, Denies nausea, Denies vomiting - Genitourinary (Female) Genitourinary: Reports kidney stones, Denies dysuria, Denies hematuria - Menstruation Menstruation: Reports period normal - Musculoskeletal Musculoskeletal: Denies myalgias - Integumentary Integumentary: Denies pruritus, Denies rash - Neurological Neurological: Denies numbness, Denies weakness - Psychiatric Psychiatric: Denies anxiety, Denies depression - Endocrine Endocrine: Denies fatigue, Denies weight change - Hematologic/Lymphatic Comment: none - Allergic/Immunologic Allergic/Immunologic: Reports seasonal allergies Past Medical History Past Medical History: GERD/Reflux Additional Past Medical History / Comment(s): 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 She had an endometrial ablation for hypermenorrhea. History of Any Multi-Drug Resistant Organisms: None Reported Past Surgical History: Section, Uterine Ablation Additional Past Surgical History / Comment(s): Endometrial Ablation 2005. Removal of parathyroid gland in 2020. Past Psychological History: No Psychological Hx Reported Smoking Status: Current some day smoker Past Alcohol Use History: None Reported, Occasional Additional Past Alcohol Use History / Comment(s): She quit smoking in early 2021 and previously only smoked socially. Past Drug Use History: None Reported - Past Family History Father Family Medical History: Hypertension Medications and Allergies Home Medications Medication Instructions Recorded Confirmed Type Cholecalciferol [Vitamin D3 (25 10,000 unit PO DAILY 08/19/19 01/05/22 History Mcg = 1000 Iu)] Calcium Carbonate [Calcium] 600 mg PO DAILY 09/21/20 01/05/22 History Pantoprazole Sodium [Protonix] 40 mg PO DAILY 11/22/21 01/05/22 History Allergies Allergy/AdvReac Type Severity Reaction Status Date / Time No Known Allergies Allergy Unverified 01/05/22 07:28 Surgical - Exam - General no distress - Eyes normal ocular movement - Neck trachea midline - Respiratory normal respiratory effort, clear to auscultation - Cardiovascular Rhythm: regular Heart Sounds: normal: S1, S2 - Abdomen Abdomen: soft, non tender, no guarding, no rigid, no rebound - Integumentary normal turgor - Neurologic no disoriented, no combative - Musculoskeletal normal gait - Psychiatric oriented to time, oriented to person, oriented to place, speech is normal, memory intact Breast Exam: BRA: 34DD inspection: Bilateral grade 2 ptosis Palpation: Right breast: Multi-positional exam fibrocystic changes no dominant masses or nodules of concern Right axilla: No adenopathy of concern Left breast: Multi-positional exam fibrocystic changes no dominant masses or nodules of concern Left axilla: No adenopathy of concern Results Mammogram reviewed microcalcifications of concern noted left breast in the upper outer quadrant Assessment and Plan Assessment: Impression: Mammogram revealing microcalcifications of concern left breast upper outer quadrant Fibrocystic breast changes Plan: Stereotactic core biopsy left breast Risk and benefits of the procedure discussed with the patient. Risk include but are not limited to bleeding, infection, reaction to the anesthetic. Additionally of the tissue were felt to be discordant then further tissue acquisition may be necessary. If the lesion cannot be seen on the stereotactic core biopsy table than the procedure would be aborted and further consideration to tissue acquisition would be made. Alternatives such as watchful waiting re section of the operating room are discussed but not recommended. The patient understands and wishes to proceed. Cc: Dr. Beckford
--- NOTE | 2022-01-05 08:39 | P.PCN ---
Date of Procedure: 01/05/22 Preoperative Diagnosis: Microcalcifications of concern left breast upper outer area Postoperative Diagnosis: Same, reviewed with Dr. Hilliard Procedure(s) Performed: Left breast stereotactic core biopsy Anesthesia: local Surgeon: Kaylin Lizarraga Pathology: other (Breast tissue with microcalcifications of concern noted on radiograph) Condition: stable Disposition: same day Indications for Procedure: Upper calcifications of concern left breast upper outer quadrant area Operative Findings: Microcalcifications of concern noted in specimen radiograph Description of Procedure: The patient is a 51-year-old white female who was noted to have microcalc ifications of concern in the left breast on a mammogram performed on . The area had been followed in the number of calcifications in the upper outer quadrant area increased in core biopsy was recommended. The patient was seen and examined and no dominant lumps masses or nodules of concern were noted. Risk and benefits of the procedure were discussed with the patient. Risks include but are not limited to bleeding, infection, reaction to the anesthetic. Alternatives such as watchful waiting resection the operating room were discussed but not recommended. The patient wished to proceed with stereotactic core biopsy. The patient was brought to the stereotactic core biopsy room. She was positioned prone on the little red table. A CC from above approach was utilized. The area of concern was identified. The area was targeted. The breast was prepped using Betadine. 28 mL of 1% lidocaine were used to anesthetize the area of concern. A 9-gauge vacuum-assisted core rotating biopsy needle was driven to the correct coordinates. A prefire film was obtained. The needle was noted to be in the correct location. The needle was fired. A postoperative film was obtained and the needle was noted to be in the correct location. 15 core biopsy specimens were obtained. Radiograph of the specimen revealed the microcalcifications of concern had been adequately sampled. A secure bianka Top-Hat clip was placed. This was noted to be in the correct location. The patient tolerated the procedure in stable condition. Specimen was sent to pathology. The patient will follow up with Dr. Gusman next week. CC:
== END ==
LOC: WWCWWP 07:21
PROVIDERS: ATTEND Surgery
DX: R92.0 Mammographic microcalcification found on diagnostic imaging of breast (principal); N60.12 Diffuse cystic mastopathy of left breast; N60.11 Diffuse cystic mastopathy of right breast; Z87.39 Personal history of other diseases of the musculoskeletal system and connective tissue; F17.200 Nicotine dependence, unspecified, uncomplicated
CPT/HCPCS: 19081; A4648

== ENCOUNTER → 2022-01-12 | Outpatient (CLI) | payer BC ==
[2022-01-12 12:30] VITALS: BP 156/111; PULSE 80; RESP 17; TEMP 98.7
--- NOTE | 2022-01-12 12:32 | P.PN ---
Subjective Progress Note Date: 01/12/22 Principal diagnosis: fibrocystic breast changes Geovanna is a 51 year old white female status post a left breast stero biopsy on 01-05-22. She tolerated the procedure without difficulty. It was felt to be benign and concordant pathology revealed benign breast with fibrocystic changes including moderate unusual type ductal hyperplasia, apocrine metaplasia, microcalcifications and calcium oxalate crystals. Objective - Constitutional General appearance: Present: cooperative - EENT Eyes: Present: EOMI ENT: Present: hearing grossly normal - Neck Neck: Present: normal ROM - Respiratory Respiratory: bilateral: CTA - Cardiovascular Heart sounds: normal: S1, S2 - Integumentary Integumentary Comment(s): Biopsy site left breast clean and dry Integumentary: Present: normal turgor Assessment and Plan Assessment: Impression: Left breast stereotactic core biopsy [id number] benign concordant Plan: Repeat left breast mammogram 6 months with physician exam at that time CC: Dr. Beckford
== END | disposition home or self-care (01) ==
LOC: WWCWWP 11:19
PROVIDERS: ATTEND Surgery
DX: Z53.9 Procedure and treatment not carried out, unspecified reason (principal)

== ENCOUNTER → 2022-07-03 | Outpatient (CLI) | payer BC ==
--- NOTE | 2022-07-03 11:08 | MM ---
Reason for Exam: Follow-up at short interval from prior study. Last screening mammogram was performed 7 month(s) ago. Patient History: Menarche at age 14. First Full-Term at age 23. Patient has history of breast feeding. Patient used Hormonal Contraceptives for 10 years. 01/05/2022, Benign MG stereo VAD BX LT on the left side. 08/29/2019, Benign Core Biopsy on the right side. 11/04/2012, Benign Core Biopsy on the right side. Last menstrual period: 06/14/2022 Risk Values: Ml 5 year model risk: 1.3%. NCI Lifetime model risk: 11.8%. Prior Study Comparison: 04/01/2021 Left Diagnostic Mammogram, [facility]. 11/22/2021 Bilateral MG 3D screening mammo w/cad, [facility]. 12/01/2021 Left MG 3D work up w/cad LT, [facility]. Tissue Density: Left: The breast tissue is heterogeneously dense. This may lower the sensitivity of mammography. Findings: Analyzed By CAD. Mammotome biopsy clip in the left breast is now present. There are few scattered benign-appearing tiny punctate calcifications in the left breast redemonstrated. No suspicious new mass or worrisome group of microcalcifications in the left breast. Overall Assessment: Benign, BI-RAD 2 Management: Screening Mammogram of both breasts in 6 months. Back on schedule. This exam should not preclude additional follow-up of suspicious palpable abnormalities. Results were given to the patient verbally at the time of exam. Electronically signed and approved by: Mookie Waller M.D.
== END | disposition home or self-care (01) ==
LOC: RADMAMWWP 10:16
PROVIDERS: ATTEND Surgery
DX: R92.8 Other abnormal and inconclusive findings on diagnostic imaging of breast (principal)
CPT/HCPCS: 77061; 77065

== ENCOUNTER → 2023-01-02 | Outpatient (CLI) | payer BC ==
[2023-01-02 09:27] VITALS: BP 157/99; PULSE 68; RESP 16; TEMP 98
--- NOTE | 2023-01-02 10:16 | P.HPOB ---
History of Present Illness H&P Date: 01/02/23 Chief Complaint: The patient is here for her routine gynecologic exam. This is a 52-year-old with an LMP of 12/19/2022. Her is status post vasectomy. She is status post endometrial ablation. She continues to have menstrual periods, but they seem to be spacing out to every 40-45 days. She denies any significant hot flashes but occasionally does feel slight sweats. She has gained some weight since last year and she is wondering if this is related to the menopausal change. Review of Systems The patient has gained 20 pounds over the last year. She denies respiratory, cardiac, or G.I. problems. Past Medical History Past Medical History: GERD/Reflux Additional Past Medical History / Comment(s): Osteoporosis diagnosed by her supervisor phosphorus processing. 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 She had an endometrial ablation for hypermenorrhea. History of Any Multi-Drug Resistant Organisms: None Reported Past Surgical History: Section, Uterine Ablation Additional Past Surgical History / Comment(s): Endometrial Ablation 2005. Removal of parathyroid gland in 2020. Past Anesthesia/Blood Transfusion Reactions: No Reported Reaction Past Psychological History: No Psychological Hx Reported Smoking Status: Current some day smoker (About 2 cigarettes per week. This is done socially.) Past Alcohol Use History: Occasional (3 drinks per week.) Past Drug Use History: None Reported Additional History: She has been since 1994. 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 - Past Family History Father Family Medical History: Hypertension Medications and Allergies Home Medications Medication Instructions Recorded Confirmed Type Cholecalciferol [Vitamin D3 (25 10,000 unit PO DAILY 08/19/19 01/02/23 History Mcg = 1000 Iu)] Calcium Carbonate [Calcium] 600 mg PO DAILY 09/21/20 01/02/23 History Allergies Allergy/AdvReac Type Severity Reaction Status Date / Time No Known Allergies Allergy Unverified 01/02/23 09:19 Exam Vital Signs Temp Pulse Resp BP Pulse Ox 01/02/23 09:20 98 F 68 16 157/99 99 Intake and Output 01/01/23 01/02/23 01/02/23 22:59 06:59 14:59 Other: Weight 79.832 kg Height 5 feet 7 inches, weight 176 pounds, BMI 27.6. This is a well-developed well-nourished white female who is alert and oriented times 3 in no acute distress. HEENT: Within normal limits. NECK: Supple without mass or thyromegaly. CHEST AND LUNGS: Clear to auscultation. HEART: Regular rate and rhythm. BREASTS: Are without mass or discharge. AXILLARY EXAM: Negative for adenopathy. BACK: Negative for CVA tenderness. ABDOMEN: Soft, nontender, without palpable masses. PELVIC EXAM: Normal external genitalia. Cervix and vagina appear normal. There is no unusual discharge. There is a stable grade 1-2 uterine prolapse and grade 2 rectocele which are asymptomatic. The uterus is midposition, nongravid size and nontender. There are no palpable adnexal masses or tenderness. RECTAL EXAM: Rectovaginal exam is negative for mass or tenderness and is negative for occult blood. EXTREMITIES: Nontender. IMPRESSION: 1. 52-year-old perimenopausal female with slight decreased frequency of menstrual periods who is status post endometrial ablation and whose is status post vasectomy. 2. Stable grade 2 rectocele and uterine prolapse which is asymptomatic. 3. Previous ASCUS Pap smear with negative high-risk HPV testing on 11/22/2021. 4. Focal osteoporosis and has been on Reclast since 2020 through her supervisor phosphorus processing. PLAN: 1. Pap smear was deferred. We will plan on repeating the Pap smear cotest in 1-2 years. 2. Self breast awareness was discussed with the patient. We have also discussed symptoms associated with inflammatory breast cancer. 3. Screening mammogram is due and the order slip was given to the patient for this. She is scheduled for the mammogram on 01/08/2023. 4. Osteoporosis management was discussed. I have stressed the importance of adequate calcium, vitamin D and regular exercise. Recommended amounts of calcium and vitamin D were also discussed. She states she will be doing a bone density test through her supervisor phosphorus processing in the near future. She will continue to be on Reclast through her supervisor phosphorus processing and plans to do this for a total of 5 years. 5. She will continue to keep a menstrual calendar and call if menstrual problems. 6. Weight control was discussed. I stressed importance of good nutrition, regular meals, adequate fiber, and regular exercise. 7. She was advised to return in one year for her annual well woman exam and as needed.
== END ==
LOC: WWCWWP 09:07
PROVIDERS: ATTEND Obstetrics & Gynecology
DX: N81.4 Uterovaginal prolapse, unspecified (principal); E21.3 Hyperparathyroidism, unspecified; M81.0 Age-related osteoporosis without current pathological fracture; K21.9 Gastro-esophageal reflux disease without esophagitis; F17.210 Nicotine dependence, cigarettes, uncomplicated; Z78.0 Asymptomatic menopausal state

== ENCOUNTER → 2023-02-05 | Outpatient (CLI) | payer BC ==
--- NOTE | 2023-02-06 11:59 | MM ---
Reason for Exam: Screening (asymptomatic). Last mammogram was performed 1 year(s) and 2 month(s) ago. Patient History: Menarche at age 14. First Full-Term at age 23. Patient has history of breast feeding. Patient used Hormonal Contraceptives for 10 years. 01/05/2022, Benign MG stereo VAD BX LT on the left side. 08/29/2019, Benign Core Biopsy on the right side. 11/04/2012, Benign Core Biopsy on the right side. Risk Values: Ml 5 year model risk: 1.4%. NCI Lifetime model risk: 11.7%. Prior Study Comparison: 03/20/2017 Bilateral Screening Mammogram, [facility]. 05/28/2018 Bilateral Screening Mammogram, [facility]. 06/17/2019 Bilateral Screening Mammogram, [facility]. 09/21/2020 Bilateral Screening Mammogram, [facility]. 11/22/2021 Bilateral MG 3D screening mammo w/cad, [facility]. 12/01/2021 Left MG 3D work up w/cad LT, [facility]. 07/03/2022 Left MG 3D diag mammo w/cad LT, [facility]. Tissue Density: The breast tissue is heterogeneously dense. This may lower the sensitivity of mammography. Findings: Analyzed By CAD. There is no suspicious group of microcalcifications or new suspicious mass in either breast. Overall Assessment: Benign, BI-RAD 2 Management: Screening Mammogram of both breasts in 1 year. . Patient should continue monthly self-breast exams. A clinical breast exam by your physician is recommended on an annual basis. This exam should not preclude additional follow-up of suspicious palpable abnormalities. Note on Ml scores and lifetime risk: 1. A Ml score greater than 3% is considered moderate risk. If this is the case, consider specialist referral to assess eligibility for a risk reducing agent. 2. If overall lifetime risk for the development of breast cancer is 20% or higher, the patient may qualify for future screening with alternating mammogram and breast MRI. Electronically signed and approved by: Teja Kwon M.D. Radiologis
== END | disposition home or self-care (01) ==
LOC: RADMAMWWP 01-08 13:57
PROVIDERS: ATTEND Obstetrics & Gynecology
DX: Z12.31 Encounter for screening mammogram for malignant neoplasm of breast (principal)
CPT/HCPCS: 77063; 77067

== ENCOUNTER → 2024-02-20 | Outpatient (CLI) | payer BC ==
[2024-02-20 11:40] VITALS: PULSE 77; RESP 17; TEMP 98
--- NOTE | 2024-02-20 12:13 | P.HPOB ---
History of Present Illness H&P Date: 02/20/24 Chief Complaint: The patient is here for her routine gynecologic exam and ma mmogram. This is a 53-year-old -1-0-4 with an LMP of 01/26/2024. The patient's is status post vasectomy. She continues to have regular monthly menstrual periods that are clinical cytogeneticist than they were before her endometrial ablation. She has a known rectocele and mild uterine prolapse. She states that these cause her no problems. She is without gynecologic complaints. Review of Systems She has lost 4 pounds over the past year. She denies respiratory, cardiac, or GI problems. 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 She had an endometrial ablation for hypermenorrhea. History of Any Multi-Drug Resistant Organisms: None Reported Past Surgical History: Section, Uterine Ablation Additional Past Surgical History / Comment(s): Endometrial Ablation 2005. Removal of parathyroid gland in 2020. Past Anesthesia/Blood Transfusion Reactions: No Reported Reaction Past Psychological History: No Psychological Hx Reported Smoking Status: Former smoker Past Alcohol Use History: Occasional (2 drinks per week.) Additional Past Alcohol Use History / Comment(s): She quit smoking in early 2021 and previously only smoked socially. Past Drug Use History: None Reported Additional History: She has been since 1994. 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 - Past Family History Father Family Medical History: Hypertension Medications and Allergies Home Medications Medication Instructions Recorded Confirmed Type Cholecalciferol [Vitamin D3 (25 10,000 unit PO DAILY 08/19/19 01/02/23 History Mcg = 1000 Iu)] Calcium Carbonate [Calcium] 600 mg PO DAILY 09/21/20 01/02/23 History Zoledronic Acid 5Mg/100Ml Pmx 1 injection IV DIRECTED 02/20/24 02/20/24 History [Reclast] Allergies Allergy/AdvReac Type Severity Reaction Status Date / Time No Known Allergies Allergy Unverified 02/20/24 11:36 Exam Vital Signs Temp Pulse Resp Pulse Ox 02/20/24 11:38 98 F 77 17 97 Intake and Output 02/19/24 02/20/24 02/20/24 22:59 06:59 14:59 Other: Weight 78.018 kg Height 5 feet 7 inches, weight 172 pounds, BMI 26.9. Blood pressure 160/98. This is a well-developed well-nourished white female who is alert and oriented times 3 in no acute distress. HEENT: Within normal limits. NECK: Supple without mass or thyromegaly. CHEST AND LUNGS: Clear to auscultation. HEART: Regular rate and rhythm. BREASTS: Are without mass or discharge. AXILLARY EXAM: Negative for adenopathy. BACK: Negative for CVA tenderness. ABDOMEN: Soft, nontender, without palpable masses. PELVIC EXAM: Normal external genitalia. Cervix is multiparous without lesions. There is a grade 1-2 uterine prolapse which is stable from her previous exam. The vagina reveals a grade 2 rectocele which is stable from her previous exam. There is no unusual discharge. There is no significant cystocele. The uterus is midposition, nongravid size and nontender. There are no palpable adnexal masses or tenderness. RECTAL EXAM: Rectovaginal exam is negative for mass or tenderness and is negative for occult blood. This does confirm a grade 2 rectocele. EXTREMITIES: Nontender. IMPRESSION: 1. 53-year-old premenstrual female whose is status post vasectomy. 2. Stable grade 1-2 uterine prolapse and grade 2 rectocele which is asympt omatic. 3. Previous Pap smear done on 11/22/2021 showed ASCUS with negative high risk HPV testing. 4. Elevated blood pressure. 5. History of osteoporosis and she has been on Reclast for about 3 years through her civil preparedness training officer. PLAN: 1. Pap smear cotest was performed. 2. Self breast awareness was discussed with the patient. We have also discussed symptoms associated with inflammatory breast cancer. 3. Screening mammogram will be done today. 4. Osteoporosis management was discussed. I have stressed the importance of adequate calcium, vitamin D and regular exercise. Recommended amounts of calcium and vitamin D were also discussed. She will continue to get Reclast injections yearly. She states she is supposed to do this until she has been on it for 5 years. She will continue to do this through her civil preparedness training officer. 5. We have discussed her elevated blood pressure. She is starting a program to try to lose weight. Her blood pressures seem to be higher when she weighs more. Recommend that she check her own blood pressures at home on a regular basis and follow-up with her PCP for blood pressure elevations. She understands there are significant risks with uncontrolled hypertension. 6. Continue conservative management for her uterine prolapse and grade 2 rectocele. 7. She will continue to keep a menstrual calendar and call if menstrual problems. 8. She was advised to return in one year for her annual well woman exam and as needed.
--- NOTE | 2024-02-20 15:09 | MM ---
Reason for Exam: Screening (asymptomatic). Last mammogram was performed 1 year(s) and 1 month(s) ago. Patient History: Menarche at age 14. First Full-Term at age 23. Patient has history of breast feeding. Patient used Hormonal Contraceptives for 10 years. 01/05/2022, Benign MG stereo VAD BX LT on the left side. 08/29/2019, Benign Core Biopsy on the right side. 11/04/2012, Benign Core Biopsy on the right side. Risk Values: Ml 5 year model risk: 1.4%. NCI Lifetime model risk: 11.5%. Prior Study Comparison: 05/28/2018 Bilateral Screening Mammogram, [facility]. 06/17/2019 Bilateral Screening Mammogram, [facility]. 06/26/2019 Right Diagnostic Mammogram, [facility]. 03/19/2020 Right Diagnostic Mammogram, [facility]. 09/21/2020 Bilateral Screening Mammogram, [facility]. 09/29/2020 Left Diagnostic Mammogram, [facility]. 04/01/2021 Left Diagnostic Mammogram, [facility]. 11/22/2021 Bilateral MG 3D screening mammo w/cad, [facility]. 12/01/2021 Left MG 3D work up w/cad LT, [facility]. 07/03/2022 Left MG 3D diag mammo w/cad LT, [facility]. 02/05/2023 Bilateral MG 3D screening mammo w/cad, [facility]. Tissue Density: The breasts are heterogeneously dense, which may obscure small masses. Findings: Analyzed By CAD. The pattern is symmetrical. Benign calcification is present bilaterally. No significant interval change is evident. Core markers are present bilaterally. No suspicious groups of microcalcifications, spiculated or lobular masses, architectural distortion or other secondary signs of malignancy are mammographically apparent. Overall Assessment: Benign, BI-RAD 2 Management: Screening Mammogram of both breasts in 1 year. A negative mammogram report should not preclude additional follow up of suspicious palpable abnormalities. Patient should continue monthly self breast exam. A clinical breast exam by your physician is recommended on an annual basis and results should be correlated with mammographic findings. Note on Ml scores and lifetime risk: 1. A Ml score greater than 3% is considered moderate risk. If this is the case, consider specialist referral to assess eligibility for a risk reducing agent. 2. If overall lifetime risk for the development of breast cancer is 20% or higher, the patient may qualify for future screening with alternating mammogram and breast MRI. [facility], , 02/20/2024 3:06 PM. Electronically signed and approved by: Mauro Grier D.O. Radiologis
== END ==
LOC: WWCWWP 11:08
PROVIDERS: ATTEND Obstetrics & Gynecology
DX: Z12.31 Encounter for screening mammogram for malignant neoplasm of breast (principal); R92.8 Other abnormal and inconclusive findings on diagnostic imaging of breast; R92.333 Mammographic heterogeneous density, bilateral breasts; R03.0 Elevated blood-pressure reading, without diagnosis of hypertension; M81.0 Age-related osteoporosis without current pathological fracture; N81.4 Uterovaginal prolapse, unspecified; Z87.891 Personal history of nicotine dependence; Z79.899 Other long term (current) drug therapy
CPT/HCPCS: 77063; 77067

== ENCOUNTER → 2024-09-01 | Outpatient (CLI) | payer BC ==
--- NOTE | 2024-09-01 07:36 | MM ---
Reason for Exam: Clinical finding. Last screening mammogram was performed 6 month(s) ago. Indicated Problems: Lump or thickening of the right side for 3 Week(s). Patient History: Menarche at age 14. First Full-Term at age 23. Patient has history of breast feeding. Patient used Hormonal Contraceptives for 10 years. Currently using Estrogen and Progesterone, for 4 months. 01/05/2022, Benign MG stereo VAD BX LT on the left side. 08/29/2019, Benign Core Biopsy on the right side. 11/04/2012, Benign Core Biopsy on the right side. Risk Values: Ml 5 year model risk: 1.4%. NCI Lifetime model risk: 11.5%. Prior Study Comparison: 07/03/2022 Left MG 3D diag mammo w/cad LT, [facility]. 02/05/2023 Bilateral MG 3D screening mammo w/cad, [facility]. 02/20/2024 Bilateral MG 3D screening mammo w/cad, [facility]. Tissue Density: Right: The breasts are heterogeneously dense, which may obscure small masses. Findings: Analyzed By CAD. Few scattered benign calcifications. Right breast biopsy clip. Marker present. No finding to correlate with palpable abnormality. Overall Assessment: Incomplete: need additional imaging evaluation, BI-RAD 0 Management: Diagnostic Mammogram of the right breast. Results were given to the patient verbally at the time of exam. Patient should continue monthly self-breast exams. A clinical breast exam by your physician is recommended on an annual basis. This exam should not preclude additional follow-up of suspicious palpable abnormalities. Note on Ml scores and lifetime risk: 1. A Ml score greater than 3% is considered moderate risk. If this is the case, consider specialist referral to assess eligibility for a risk reducing agent. 2. If overall lifetime risk for the development of breast cancer is 20% or higher, the patient may qualify for future screening with alternating mammogram and breast MRI. [facility], , 09/01/2024 7:34 AM. Electronically signed and approved by: Sandro Sanchez DO
--- NOTE | 2024-09-01 07:56 | USB ---
Reason for Exam: Clinical finding. Patient History: Menarche at age 14. First Full-Term at age 23. Patient has history of breast feeding. Patient used Hormonal Contraceptives for 10 years. Currently using Estrogen and Progesterone, for 4 months. 01/05/2022, Benign MG stereo VAD BX LT on the left side. 08/29/2019, Benign Core Biopsy on the right side. 11/04/2012, Benign Core Biopsy on the right side. Risk Values: Ml 5 year model risk: 1.4%. NCI Lifetime model risk: 11.5%. Technique: Method: Targeted. Prior Study Comparison: 07/03/2022 Left MG 3D diag mammo w/cad LT, [facility]. 02/05/2023 Bilateral MG 3D screening mammo w/cad, [facility]. 02/20/2024 Bilateral MG 3D screening mammo w/cad, [facility]. Findings: The medial section of the breast of the right breast, the axilla of the right breast and the retroareolar of the right breast were scanned. Technique utilized:US breast limited RT Image; Ultrasound imaging of: Area of concern palpable abnormality medial 3-6 o'clock, retroareolar region and axilla. No evidence for organizing fluid collection or mass. No finding to correlate with palpable abnormality. Overall Assessment: Negative, BI-RAD 1 Management: Screening Mammogram of both breasts in 1 year. A clinical breast exam by your physician is recommended on an annual basis and results should be correlated with mammographic findings. This exam should not preclude additional follow-up of suspicious palpable abnormalities. Results were given to the patient verbally at the time of exam. [facility], , 09/01/2024 7:54 AM. Electronically signed and approved by: Sandro Sanchez DO
== END | disposition home or self-care (01) ==
LOC: RADUSWWP 07:04
PROVIDERS: ATTEND Family Medicine
DX: N63.10 Unspecified lump in the right breast, unspecified quadrant (principal); R92.331 Mammographic heterogeneous density, right breast; Z92.0 Personal history of contraception
CPT/HCPCS: 77061; 77065